=== PATIENT | female | born 1945 | race Caucasian/White ===

== ENCOUNTER 2024-09-24 17:30 | Inpatient (IN) | payer OTHER, SELFPAY ==
[2024-09-23] VITALS (7 sets, daily range): BP systolic 120–186; BP diastolic 55–101; BMI 34.8; BMI 33.8
--- NOTE | 2024-09-23 14:01 | CON.NEURO ---
Addendum entered and electronically signed by Rohit Jiménez MD 09/23/24 16:17:
Studies reviewed.
I have personally examined the patient. I reviewed and agree with the SENIOR IT SECURITY ANALYST's Note.
My addenda:
Awake, alert, interactive. No acute distress.
Speech intact.
Follows 2-step requests w/o difficulty. No tremor.
Extra-ocular movements grossly intact.
Facial movements full and symmetric. Hearing intact to normal conversational volume.
Normal UE movements bilaterally.
Neck: full ROM.
Chest: no dyspnea
Heart: no JVD
Ext: (-) Clubbing, (-) Cyanosis, (-) Edema
IMPRESSIONS/RECOMMENDATIONS:
Abrupt onset of left arm leg and V3 distribution sensation change with patient experiencing prior episodes of left arm sensation change during hypoglycemia
Differential diagnosis includes toxic metabolic encephalopathy, TIA and stroke, hypertensive encephalopathy, migraine with aura
Check blood work for potential metabolic causes
Check for aspirin efficacy (P2Y12 assay, verify now test)
Would add clopidogrel to the patient's usual aspirin dosing for 21 days due to risk of TIA, then return to aspirin if there is efficacy by blood work testing
Check lipid profile
Check MRI of brain to determine if there is a structural abnormality producing symptoms
Goal of normoglycemia
Would attempt to reduce patient's blood pressure by approximately 20% for the next 24 hours, then goal of normotension
D/W patient / family / nursing
All questions answered.
Will continue to follow patient.
Original Note:
Documented by User: Sherri Foreman NP 09/23/24 15:39
Neuro Assessment/Plan
Assessment
Patient is a 79 year old right-handed female with PMH of Factor V Leiden, Type 2 DM, HTN, gastric bypass, current smoker, presented to [facility] on 09/23/2024 for evaluation of left-sided numbness and tingling.
Head CT: No acute intracranial abnormality noted. No acute hemorrhage. Mild chronic white matter ischemic change. Aspects: 10.
Head and neck CTA:
The cervical carotid and vertebral arteries are patent. Mild calcified plaque involving the left carotid bulb and extending into the origin of the left ICA. However, no hemodynamically significant stenosis, occlusion, or dissection.
No [place] region aneurysm or stenosis.
No cerebral artery significant plaque, stenosis, thrombus, or occlusion. Normal variant hypoplastic segments of the right posterior cerebral artery P1 segment, left posterior cerebral artery P1 segment, distal basilar artery, and distal intradural
left vertebral artery.
Labs: LDL 128, Hgb A1C 7.1
Plan
Impression: abrupt onset of left sided numbness and tingling due to ischemic stroke vs hypertensive encephalopathy vs migraine with aura
-check MRI brain without contrast to evaluate for stroke
-BP goal is normotension.
-continue ASA 81mg daily, check aspirin assay to ensure she is a responder, start clopidogrel 75 mg daily for 21 days followed by monotherapy with aspirin unless not a responder then may continue with monotherapy with clopidogrel
-goal is normoglycemia.
-current LDL 128 with goal <70, start atorvastatin 80 mg nightly
-PT/OT/ST evaluations
-DVT prophylaxis
-continue neurochecks and NIHSS per unit guidelines
-smoking cessation advised
-stroke education material to be provided
All questions encouraged and answered, plan of care discussed with LUIS F Esposito, nurse, patient and
Consultation
Order
Date of Consultation: 09/23/24
Requesting Provider: Marvin Lara PA-C
Reason for Consult: stroke alert
Subjective/Objective
Subjective Data
Date of Service: September 23, 2024
Patient is a 79 year old right-handed female with PMH of Factor V Leiden, Type 2 DM, HTN, gastric bypass, current smoker, presented to [facility] on 09/23/2024 for evaluation of left-sided numbness and tingling. She noted left-sided paresthesias affecting
the arm and leg beginning at 12:00 today, progressing to the face shortly before arrival to the ER. Woke up around 6 am and thought she was in her normal state of health, at 7:30 am went to [facility] and noticed her left hip was numb but thought it was
due to her diabetes. Also had a headache and nausea a little later which resolved after NSAID. She states she had similar symptoms 20 years ago after taking Topamax. Currently denies vision changes, issues with speech or swallowing, denies dizziness
or headache or neck pain, denies chest pain or SOB, denies issues with bowel/bladder, denies issues with balance or ambulation. She is currently taking aspirin 81 mg daily for her Factor V Leiden. Head neck CTA with no acute findings. Head CT with
no acute findings. NIHSS 1 not a TNK candidate. In the ED her BP was 177/80. She states her symptoms are improving but have not resolved.
Objective Data
Vital Signs
Temp Pulse Resp BP Pulse Ox
98.8 F 103 20 186/100 98
09/23/24 13:54 09/23/24 13:54 09/23/24 13:54 09/23/24 13:54 09/23/24 13:54
Patient Allergies
topiramate (From Topamax) Allergy (Verified 09/23/24 13:56)
Nausea/numbness
CVA Assessment
Onset of Stroke Symptoms
Onset of symptoms known: Yes
Date of onset of symptoms: 09/23/24
Time of onset of symptoms: 12:00
Time pt last seen normal is known: Yes
Date last time pt seen normal: 09/23/24
Time last time pt seen normal: 12:00
NIH Stroke Score
Level of Consciousness: 0 - Alert
LOC Questions: 0-Answers both correctly
LOC Commands: 0-Performs both correctly
Best Horizontal Gaze: 0-Normal
Visual Rogers: 0=Normal, no visual loss
Facial Palsy: 0=Normal, symmetrical
Motor - Right Arm: 0=No drift 10 seconds
Motor - Left Arm: 0=No drift 10 seconds
Motor - Right Le-No drift 5 seconds
Motor - Left Le-No drift 5 seconds
Limb Ataxia: 0-Absent
Sensation: 1-Mild loss
Best Language: 0-No aphasia
Dysarthria: 0-Normal
Extinction and Inattention: 0-No abnormality
NIH Total Score:: 1
Tenecteplase Contraindications
Inclusion and Exclusion criteria reviewed: Yes
IAT Contraindications: NIHSS < 6
Modified Amandeep Score (MRS)
-
Modified Andrews Scale (mRS): No significant disability. Able to carry out usual activities.
Score: 1

Documented by User: Rohit Jiménez MD 09/23/24 15:54
CVA Assessment
NIH Stroke Score
NIH Total Score:: 1
Modified Andrews Score (MRS)
-
Score: 1
--- NOTE | 2024-09-23 14:06 | ED.CVA ---
History of Present Illness
General
Chief Complaint: CVA/TIA Symptoms
Time Seen by Provider: 09/23/24 14:05
Onset of Stroke Symptoms
Onset of symptoms known: Yes
Date of onset of symptoms: 09/23/24
Time of onset of symptoms: 12:00
History of Present Illness
History of Present Illness:
71-year-old female presents to the emergency department for evaluation of left-sided paresthesias affecting the arm and leg beginning at 12:00 today, progressing to the face shortly before arrival to the ER. Denies any vision changes, neck pain,
extremity weakness, or speech difficulty. No prior history of stroke. Stroke alert called by triage after initial assessment
Review of Systems
Review of Systems
Allergies reviewed?: Yes
All Other Systems: ROS reviewed and negative except as documented in HPI and ROS
Phy Exam
Physical Exam
Physical Exam:
GEN: Well appearing, NAD, WDWN
HEENT: Oral mucosa moist, no scleral icterus, no nasal congestion
Cardiac: Regular rate
Lung: No respiratory distress, no tachypnea
MSK: No gross deformity or injuries
Skin: Good color, no pallor or jaundice, no rashes
Neuro: AO x3; CN II-XII grossly intact. BUE strength 5/5 in all thomas, subjective hypoesthesia to the left upper extremity but sensation is globally intact. BLE strength 5/5 in all thomas, sensation intact and symmetric
Psych: Calm, cooperative
Scores
NIH Stroke Score
Level of Consciousness: 0 - Alert
LOC Questions: 0-Answers both correctly
LOC Commands: 0-Performs both correctly
Best Horizontal Gaze: 0-Normal
Visual Thomas: 0=Normal, no visual loss
Facial Palsy: 0=Normal, symmetrical
Motor - Right Arm: 0=No drift 10 seconds
Motor - Left Arm: 0=No drift 10 seconds
Motor - Right Le-No drift 5 seconds
Motor - Left Le-No drift 5 seconds
Limb Ataxia: 0-Absent
Sensation: 0-Normal
Best Language: 0-No aphasia
Dysarthria: 0-Normal
Extinction and Inattention: 0-No abnormality
NIH Total Score:: 0
Course
Orders/Labs/Results
Orders:
Orders
09/23/24 14:05
CT HEAD STROKE ALERT W/o Cont Urgent
Comment:
Reason For Exam: L sided paresthesia
CT HEAD/NECK ANG STROKE ALERT Urgent
Comment:
Reason For Exam: L sided paresthesia
09/23/24 14:06
Electrocardiogram (*1) Urgent
Reason for Study: TIA/Stroke
EKG- Treatment ONCE
09/23/24 14:17
Cardiovascular Evaluation Urgent
Comment: ADD ON
Complete Blood Count/No Diff Urgent
Comprehensive Metabolic Panel Urgent
Free T4 Urgent
Comment: ADD ON
Glycohemoglobin (HgbA1c) Urgent
TSH Urgent
Comment: ADD ON
Vitamin B12 Urgent
Comment: ADD ON
09/23/24 14:21
Add On- LAB Routine
Tests Added?: lipid panel, hgb A1C, TSH, free t4, B12
VerifyNow Aspirin Routine
Pt on daily regimen OR been given initial dose of aspirin?: Yes
09/23/24 14:22
MR Brain Without Contrast Routine
Comment:
Reason For Exam: left sided numbness and tingling
Recent pill cam endoscopy?: No
09/23/24 14:27
Lorazepam [Ativan] 1 mg PO ONCE PRN PRN
09/23/24 14:29
Clopidogrel Bisulfate [Plavix] 75 mg PO NOW STA
09/23/24 14:30
Ferritin Routine
Folate Routine
Comment: May add to blood in lab
TSH Reflex To Free T4 Routine
Comment: May add to blood in lab
Vitamin B12 Routine
Comment: May add to blood in lab or draw as routine
09/23/24 14:58
Admit/Transfer Patient As Directed
Co-Sign Provider:
Level of Care: Observation services
Assign to:: Telemetry
Physician / Group: warner lugo
Diagnosis: TIA
Reason for Telemetry: CVA/TIA
Date to Stop Telemetry: 09/26/24
Time to Stop Telemetry: 11:00
09/23/24 14:59
Code Status As Directed
Resuscitation Status: Full Code
PRN Pain Medication Management As Directed
May give lesser potent ordered pain med per pt: Yes
preference::
Protocol:: Medication orders for pain may be administered in a
manner that supports deferring to patient preference
when the pt is:
- Requesting an ordered lesser potent pain medication.
Least to most potent pain medications are defined
as: acetaminophen < NSAID < tramadol < opioids
(morphine, oxycodone, hydromorphone).
- Requesting a lesser dose of the same medication IF
ORDERED.
- Requesting a less intrusive route of administration
if both routes are prescribed by the provider (PO <
IV).
09/23/24 18:00
Atorvastatin [Lipitor] 80 mg PO QPM
09/24/24 08:00
Clopidogrel Bisulfate [Plavix] 75 mg PO DAILY
09/26/24 11:00
DC Protocol for Telemetry ONCE
Abnormal Lab Results
09/23/24 09/23/24
14:17 14:19
MCHC 32.4 L g/dL
(33.0-37.0)
Glucose 118 H mg/dl
(70-99)
Triglycerides 253 H mg/dl
(10-149)
Total Cholesterol 239 H mg/dl
(50-199)
VLDL Cholesterol, Calc 50 H mg/dl
(0-30)
POC Glucose 111 H mg/dl
(70-99)
09/23/24 14:17
09/23/24 14:17
Vital Signs
Initial and Last Documented VS:
Initial Vital Signs
Temp Pulse Resp BP Pulse Ox
98.8 F 103 20 186/100 98
09/23/24 13:54 09/23/24 13:54 09/23/24 13:54 09/23/24 13:54 09/23/24 13:54
Last Documented Vital Signs
Temp Pulse Resp BP Pulse Ox
98.8 F 94 20 137/80 97
09/23/24 13:54 09/23/24 15:00 09/23/24 13:54 09/23/24 15:00 09/23/24 15:00
MDM/Problems Addressed
MDM/Problems Addressed:
79-year-old female arrives as a stroke alert. CT and CTA showed no evidence for intracranial hemorrhage or large vessel occlusion. She is not a candidate for thrombolysis on the basis of a low NIH score with only subjective paresthesias and no
objective weakness. She will be admitted to the medical service for further stroke workup and started on dual antiplatelets as indicated by neurology
Comment
Comment:
EKG independently interpreted by me shows a normal sinus rhythm with a first-degree AV block, no ischemic changes, rate of 78
*Pulse Oximetry
SaO2: 98
Oxygen Mode of Delivery: Room air
Patient hypoxic: no
*Critical Care Note
Total Time (30-74mins, 75-104mins- exclusive of procedures): Not Applicable
Update Note
Update Note:
Outpatient lab work reviewed through patient's health portal showing an A1c of 7.1, total cholesterol 207, and LDL cholesterol of 123 most recently, HDL cholesterol was 49
ED Attending Note
-
Portions of this chart may have been created with voice recognition software.� Occasional wrong word or��sound alike� substitutions may have occurred due to the inherent limitations of voice recognition software.
Discharge Plan
Departure
Patient Disposition: Admit
Date of Disposition: 09/23/24
Time of Disposition: 14:43
Admit to: Telemetry
Presentation/result/management discussed w/ accepting MD/DO: Hospitalist
Discharge Problem:
Acute CVA (cerebrovascular accident)
Interventions
Interventions:
*Risk Screen - Suicide Last Done: 09/23/24 13:54
*General Assessment Last Done: 09/23/24 13:54
*ED- Fall Risk Assessment Last Done: 09/23/24 14:19
ED- Pulmonary Assessment Last Done: 09/23/24 14:20
ED- Neurological Assessment Last Done: 09/23/24 14:04
ED Swallowing Screen Last Done: 09/23/24 14:04
[2024-09-23 14:21] LABS: Glucose - Point of Care 111 mg/dl (70-99)
[2024-09-23 14:32] LABS: Hematocrit 46.6 % (37.0-47.0); Hemoglobin 15.1 g/dL (12.0-16.0); Mean Corp Hgb Conc. 32.4 g/dL (33.0-37.0); Mean Corpuscular Volume 86.8 fL (81.0-99.0); Platelet Count 232 10^3/uL (130-400); Red Cell Dist. Width 14.2 % (11.5-14.5)
[2024-09-23 14:41] LABS: ALT (SGPT) 16 U/L (0-35); AST (SGOT) 19 U/L (14-36); Albumin 4.4 g/dl (3.5-5.0); Alkaline Phosphatase 87 U/L (38-126); Blood Urea Nitrogen 10 mg/dl (7-17); Calcium 9.5 mg/dl (8.4-10.2); Carbon Dioxide 28 mmol/L (22-30); Chloride 104 mmol/L (98-107); Estimated Creatinine Clearance 94 ml/min; Glucose 118 mg/dl (70-99); Potassium 4.1 mmol/L (3.5-5.1); Sodium 140 mmol/L (135-145); Total Protein 7.6 g/dl (6.3-8.2); eGFR > 60.00
--- NOTE | 2024-09-23 14:46 | HPS.HSE ---
Family Physician
-
Family Physician:
Chief Complaint
-
left sided paresthesias
History of Present Illness
71-year-old female with PMh for HTN, type 2 Dm presents to the emergency department for evaluation of left-sided paresthesias affecting the arm and leg beginning at 12:00 today, progressing to the face shortly before arrival to the ER. the
paresthesias getting better. denied any acute weakness. Denies any vision changes, neck pain, extremity weakness, or speech difficulty. denied JEAN BAPTISTE< dizzy or syncope. denied chest pain, sob.denied abdominal pain,n,v,d. denied dysuria or hematuria.
Head neck CTA with no acute findings. Head CT with no acute findings. Patient initiated on Plavix. Admitted for further management
Medical History
Past Medical History
Past Medical History: Reports Other
Additional Past Medical History:
Type 2 diabetes
Hypertension
Factor V [place]
Asthma
Past Surgical History: Reports Other
Additional Past Surgical History:
Cholecystectomy
Gastric bypass
Social History
Tobacco: Smoker (1 pack/week)
Alcohol: None
Drug: None
Family History
Family History: Not pertinent
Allergies / Home Medications
Allergies reflects when Allergies were last updated in [employer].
Home Medications with original date entered in [employer]
Allergy/Medication List:
Allergies
Allergy/AdvReac Type Severity Reaction Status Date / Time
topiramate (From Topamax) Allergy Nausea/numb Verified 09/23/24 13:56
ness
Home Medications
aspirin 81 mg tablet 81 mg PO DAILY 09/23/24
cholecalciferol (vitamin D3) 25 mcg (1,000 unit) tablet (Vitamin D3) 25 mcg PO DAILY 09/23/24
dextran 70-hypromellose eye drops in a dropperette (Artificial Tears (PF) drops in a dropperette) 1 drp BOTH EYES QIDPRN PRN DRY EYE 09/23/24
docusate sodium 100 mg capsule 100 mg PO HS 09/23/24
ferrous sulfate 27 mg iron tablet 54 mg PO Q48H 09/23/24
magnesium oxide 400 mg PO QPM 09/23/24
metformin 500 mg tablet 500 mg PO MEALS 09/23/24
potassium 99 mg tablet 99 mg PO DAILY 09/23/24
triamterene 37.5 mg-hydrochlorothiazide 25 mg tablet 0.5 tab PO DAILY Fluid Retention/Swelling 09/23/24
Review of Systems
-
Constitutional: Reports No Symptoms
EENT: Reports No Symptoms
Respiratory: Reports No Symptoms
Cardiac: Reports No Symptoms
Abdomen/GI: Reports No Symptoms
: Reports No Symptoms
Musculoskeletal: Reports No Symptoms
Skin: Reports No Symptoms
Neurological: Reports Numbness ( left side) and Other
Endocrine: Reports No Symptoms
Hematologic/Lymphatic: Reports No Symptoms
Psych: Reports No Symptoms
Physical Exam
Vital Signs
Vital Signs
Temp Pulse Resp BP Pulse Ox
98.8 F 102 20 170/101 98
09/23/24 13:54 09/23/24 14:19 09/23/24 13:54 09/23/24 14:17 09/23/24 14:19
Physical Exam
General: Well Developed, Well Nourished and No Apparent Distress
HEENT: NormoCephalic, Moist mucous membranes and Atraumatic
Respiratory: Clear
Cardiac: S1/S2 and Regular Rhythm; No Murmur or Rub
GI: Soft, Non Tender, Non Distended and Normal Bowel Sounds; No Organomegaly
Rectal: Deferred by Provider
Musculoskeletal: No Clubbing, No Cyanosis and No Edema
Skin: No Rash
Neuro: AO x 3 and Nonfocal/grossly intact
Psych: Calm
Laboratory Results
-
09/23/24 14:17
09/23/24 14:17
Laboratory Results
Total Bilirubin 0.6 mg/dl (0.2-1.3) 09/23/24 14:17
AST 19 U/L (14-36) 09/23/24 14:17
ALT 16 U/L (0-35) 09/23/24 14:17
Alkaline Phosphatase 87 U/L (38-126) 09/23/24 14:17
Data Reviewed
-
CT Scan: Report Reviewed by me
Lab Data: Labs Reviewed by me
Impression/Plan
-
# Acute CVA
- Head neck CTA with impression of he cervical carotid and vertebral arteries are patent. Mild calcified plaque involving the left carotid bulb and extending into the origin of the left ICA. However, no hemodynamically significant stenosis,
occlusion, or dissection.
No [place] region aneurysm or stenosis.No cerebral artery significant plaque, stenosis, thrombus, or occlusion. Normal variant hypoplastic segments of the right posterior cerebral artery P1 segment, left posterior cerebral artery P1
segment, distal basilar artery, and distal intradural left vertebral artery.
- CT head with impression No acute intracranial abnormality noted. No acute hemorrhage. Mild chronic white matter ischemic change.
- Obtain MRI
- Plavix continued
- Aspirin continue
- Patient cannot tolerate statin, will try Crestor
- Obtain A1c, lipid profile
- Neurology following patient
# Iron deficiency anemia
- Ferrous sulfate continued
# Type 2 diabetes
- Hold metformin
- Sliding scale, CHO diet
# Essential hypertension
- Triamterene/HCTZ continue
#Nicotine dependence
-smokes 1 pack per week
-denied Nicotine patch
# DVT prophylaxis
- SCDs
# CODE STATUS
- Full code
[2024-09-23 14:48] LABS: HDL Cholesterol 61 mg/dl; LDL Cholesterol, Calculated 128 mg/dl; Very Low Density Lipoprotein 50 mg/dl (0-30)
--- NOTE | 2024-09-23 14:49 | W.PN.UPDATE ---
Update Note
Progress Note Update
This note serves as an addendum to the H&P by strategy consultant NICOLE�
Syeda TOÑO�
HPI
71F HX HTN, DMT2 seen at ER:
- for evaluation of left-sided paresthesias affecting the arm and leg beginning at 12:00 today, progressing to the face shortly before arrival to the ER.
- No prior history of stroke. Stroke alert called by triage after initial assessment
ROS
Denies any vision changes, neck pain, extremity weakness, or speech difficulty.
Relevant VS
Temp Pulse Resp BP Pulse Ox
98.8 F 102 20 170/101 98
09/23/24 13:54 09/23/24 14:19 09/23/24 13:54 09/23/24 14:17 09/23/24 14:19
PE:
GEN: NAD, WDWN
HEENT: Oral mucosa moist, no scleral icterus, no nasal congestion
Cardiac: RRR
Lung: CTA
MSK: No gross deformity or injuries
Neuro:
AO x3
CN II-XII grossly intact.
BUE strength 5/5 in all thomas,
subjective hypoesthesia to the left upper extremity but sensation is globally intact.
BLE strength 5/5 in all thomas, sensation intact and symmetric
Psych: Calm, cooperative
NIH
Level of Consciousness: 0 - Alert
LOC Questions: 0-Answers both correctly
LOC Commands: 0-Performs both correctly
Best Horizontal Gaze: 0-Normal
Visual Thomas: 0=Normal, no visual loss
Facial Palsy: 0=Normal, symmetrical
Motor - Right Arm: 0=No drift 10 seconds
Motor - Left Arm: 0=No drift 10 seconds
Motor - Right Le-No drift 5 seconds
Motor - Left Le-No drift 5 seconds
Limb Ataxia: 0-Absent
Sensation: 0-Normal
Best Language: 0-No aphasia
Dysarthria: 0-Normal
Extinction and Inattention: 0-No abnormality
NIH Total Score:: 0
Relevant data�
09/23/24 09/23/24
14:17 14:19
MCHC 32.4 L
Glucose 118 H
Triglycerides 253 H
Total Cholesterol 239 H
VLDL Cholesterol, Calc 50 H
POC Glucose [address] HEAD/NECK ANG STROKE ALERT
- The cervical carotid and vertebral arteries are patent.
- Mild calcified plaque involving the left carotid bulb and extending into the origin of the left ICA.
However, no hemodynamically significant stenosis, occlusion, or dissection.
- No [place] of [place] region aneurysm or stenosis.
- No cerebral artery significant plaque, stenosis, thrombus, or occlusion.
- Normal variant hypoplastic segments of the right posterior cerebral artery P1 segment, left posterior cerebral artery P1 segment, distal basilar artery, and distal intradural left vertebral artery.
HCT
- No acute intracranial abnormality noted. No acute hemorrhage. Mild chronic white matter ischemic change.
ASSESSMENT & PLAN
Stroke alert
Abrupt onset of L paresthesias affecting the arm and leg
R hand dominant
- NIH zero
- NEG HCT, NEG H & N CTA
- Not TNK candidate
- agree with Plavix added GRINDER GEAR ASA
- Brain MRI in AM
- agree with Crestor
- cessation of smoking
- Neuro consulted
Hyperlipemia
- Prior HX intolerance to 3 statin due to ADES depressed mood
- start Rosuvastatin 20 mg HS
Poorly controlled HTN
Essential HTN
- Observe BP
- c/w HCTZ/Triamterene
DMT2
- hold metformin
- add ISS Low
Current smoker
- cessation of smoking encouraged
- refuse Nicotine patch
DVT Px: SCD
Full code
OBS TLM
[2024-09-23] MEDS: PLAVIX 75 MG PO (15:03)
[2024-09-23 16:13] LABS: TSH 0.06 uIU/ml (0.47-4.68)
[2024-09-23 16:32] LABS: Vitamin B12 288 pg/ml (239-931)
--- NOTE | 2024-09-23 17:35 | CM ---
CM reviewed chart and met with pt bedside in ED. Pt lives alone, first floor condo with [address],
Independent in ADLs, personal care and ambulation at baseline, no DME
TOVAR reviewed and signed
No hx VN or SNF
PCP: Keyon Xiong
Pharmacy: [facility]
Anticipate discharge home, CM will continue to follow for any discharge planning needs.
[2024-09-23 18:18] LABS: Ferritin 24.2 ng/ml (11.1-264.0)
--- NOTE | 2024-09-23 18:26 | TRANSFER ---
pt arrived from ED accompanied by staff. pt ambulated from stretcher to bed independently. pt AAOx3, VSS. BP elevated at 158/91. pt c/o 3/10 headache, but does not want tylenol. NIHSS 1 upon admission for decreased sensation to left cheek, arm, and
leg. plan of care ongoing.
[2024-09-23 18:29] LABS: Glucose - Point of Care 129 mg/dl (70-99)
[2024-09-23 18:49] LABS: Folate > 20.0 ng/ml (2.76-20)
[2024-09-23] MEDS: CRESTOR 20 MG PO (19:42)
[2024-09-23] MEDS: COLACE 100 MG PO (19:43)
[2024-09-23 21:24] LABS: Glucose - Point of Care 144 mg/dl (70-99)
[2024-09-24] VITALS (7 sets, daily range): BP systolic 134–147; BP diastolic 65–81; PULSE 59–68; O2SAT 97–98
--- NOTE | 2024-09-24 03:02 | DOWNTIME ---
There was a [employer] Downtime on 09/24/2024 from 0100 to 09/24/2024 at 0235. Downtime documentation of patient's care, including medication administrations, has been reconciled in the electronic record per guidelines. Refer to the
patient's paper chart under the miscellaneous tab to see printed paper medication records and downtime forms.
[2024-09-24 06:41] LABS: Glycohemoglobin (HgbA1c) 7.1 % (4.0-5.6)
[2024-09-24] MEDS: PLAVIX 75 MG PO (07:55)
[2024-09-24] MEDS: LOW STRENGTH ASPIRIN 81 MG PO (07:55)
[2024-09-24 08:23] LABS: Glucose - Point of Care 149 mg/dl (70-99)
[2024-09-24 09:01] LABS: VerifyNow Aspirin 504 ARU
--- NOTE | 2024-09-24 09:16 | W.PN.HOSP.TC ---
Today's Communication/Plan
-
Oral folic acid
Aspirin & Plavix
Crestor
Benzo for MRI
f/w neurology recommendations
Assessment / Plan
Assessment / Plan
Physical Exam
General: Well Developed, Well Nourished and No Apparent Distress
HEENT: NormoCephalic, Moist mucous membranes and Atraumatic
Respiratory: Clear
Cardiac: S1/S2 . Positive murmur
GI: Soft, Non Tender, Non Distended and Normal Bowel Sounds;
Musculoskeletal: No Clubbing, No Cyanosis and No Edema
Skin: No Rash
Neuro: AO x 3 and Nonfocal/grossly intact. Mild left facial droop
Psych: Calm
#Abrupt onset of left arm & leg numbness
She reports same numbness on the left side with mild headache. No blurred vision. No speech difficulty. Noted to have mild left facial droop
- Head neck CTA with impression of he cervical carotid and vertebral arteries are patent. Mild calcified plaque involving the left carotid bulb and extending into the origin of the left ICA. However, no hemodynamically significant stenosis,
occlusion, or dissection.
No [place] region aneurysm or stenosis.No cerebral artery significant plaque, stenosis, thrombus, or occlusion. Normal variant hypoplastic segments of the right posterior cerebral artery P1 segment, left posterior cerebral artery P1
segment, distal basilar artery, and distal intradural left vertebral artery.
- CT head with impression No acute intracranial abnormality noted. No acute hemorrhage. Mild chronic white matter ischemic change.
Differential diagnosis includes toxic metabolic encephalopathy, TIA and stroke, hypertensive encephalopathy, migraine with aura
- Obtain MRI
- Plavix continued
- Aspirin continue
- Patient cannot tolerate statin, will try Crestor
- Obtain A1c 7.1,
Lipid panel showed triglyceride 253, total cholesterol 239, LDL 128, HDL 61. Normal vitamin B12. Low folate level.
- Appreciate neurology help
# Iron deficiency anemia
- Ferrous sulfate continued
# Type 2 diabetes
- Hold metformin
- Sliding scale, CHO diet
# Essential hypertension
- Triamterene/HCTZ continue
#Nicotine dependence
-smokes 1 pack per week
-denied Nicotine patch
# DVT prophylaxis
- SCDs
# CODE STATUS
- Full code
Total time spent to see the patient, examine the patient, review data and lab results, discuss treatment plan with patient, nursing staff around 55 minutes
Anticipated Discharge: 24 - 48 hours
Subjective/Interval History
-
Date of Service: September 24, 2024
No chest pain or sob
No new focal signs, reports headache and same numbness in left arm/leg
Objective Data
-
Vital Signs:
Vital Signs
Temp Pulse Resp BP Pulse Ox
97.8 F 79 18 135/81 95
09/24/24 07:49 09/24/24 07:49 09/24/24 07:49 09/24/24 07:49 09/24/24 07:49
--- NOTE | 2024-09-24 09:39 | PTOTSP ---
pt currently requires supervision to no assistance to complete simple ADLs, functional transfers, ambulation. pt reports decreased sensation in LUE, LE, though no motor coordination or deficits. no acute OT needs identified at this time, will sign
off.
--- NOTE | 2024-09-24 09:43 | W.PN.NEURO.1 ---
Addendum entered and electronically signed by Rohit Jiménez MD 09/24/24 14:57:
Studies reviewed.
I have personally examined the patient. I reviewed and agree with the OUTSIDE SALES EXECUTIVE's Note.
My addenda:
Awake, alert, interactive. No acute distress.
Speech intact.
Follows 2-step requests w/o difficulty. No tremor.
Extra-ocular movements grossly intact.
Facial movements full and symmetric. Hearing intact to normal conversational volume.
Normal UE movements bilaterally.
Neck: full ROM.
Chest: no dyspnea
Heart: no JVD
Ext: (-) Clubbing, (-) Cyanosis, (-) Edema
IMPRESSIONS/RECOMMENDATIONS:
Abrupt onset of left face and left arm sensation change
Most likely secondary to acute onset stroke, differential diagnosis includes migraine with aura and toxic metabolic encephalopathy
Await MRI of brain
Continue dual antiplatelet therapy for 21 days, then return to aspirin alone dependent on MRI of brain results.
Initiate B12 replacement
Initiate iron infusions due to low ferritin level (less than 75)
Compression stockings
Will continue to follow pending results.
Original Note:
Documented by User: Yessenia Hardin NP 09/24/24 14:40
Today's Communication / Plan
-
.
Neuro Assessment/Plan
Assessment
Abrupt onset of left arm leg and V3 distribution sensation change with patient experiencing prior episodes of left arm sensation change during hypoglycemia
Differential diagnosis includes toxic metabolic encephalopathy, TIA and stroke, hypertensive encephalopathy, migraine with aura
Vitamin B12 and ferritin levels are low.
Head CT: No acute intracranial abnormality noted. No acute hemorrhage. Mild chronic white matter ischemic change. Aspects: 10.
Head and neck CTA:
The cervical carotid and vertebral arteries are patent. Mild calcified plaque involving the left carotid bulb and extending into the origin of the left ICA. However, no hemodynamically significant stenosis, occlusion, or dissection.
No [place] region aneurysm or stenosis.
No cerebral artery significant plaque, stenosis, thrombus, or occlusion. Normal variant hypoplastic segments of the right posterior cerebral artery P1 segment, left posterior cerebral artery P1 segment, distal basilar artery, and distal intradural
left vertebral artery.
Labs: LDL 128, Hgb A1C 7.1
Plan
-MRI brain noncontrast pending.
-BP goal is normotension.
-continue ASA 81mg daily, Verify now aspirin testing demonstrates efficacy. Continue clopidogrel 75 mg daily for 21 days followed by monotherapy with aspirin.
-goal is normoglycemia.
-current LDL 128 with goal <70, continue rosuvastatin 20mg daily.
-Vitamin B12 level is low at 288, goal >400. Patient reports she takes a B vitamin at home orally, provide cyanocobalamin 1000mcg IM daily while hospitalized.
-Ferritin level is low at 24. Provide IV iron x1 now. Consider daily oral iron supplement as an outpatient instead of every other day.
-PT/OT/ST evaluations
-DVT prophylaxis
-THERON stockings due to lower extremity edema.
-continue neurochecks and NIHSS per unit guidelines
-smoking cessation counseling
-stroke education material to be provided
Subjective/Objective
Subjective Data
Date of Service: September 24, 2024
Patient reports that her left side is still numb involving the left face V2-V3 and left arm. She developed a dull headache yesterday around 1200, she still has this and rates it a 1/10. She denies any nausea, photo/phonophobia.
Objective Data
Vital Signs
Temp Pulse Resp BP Pulse Ox
97.8 F 79 18 135/81 95
09/24/24 07:49 09/24/24 07:49 09/24/24 07:49 09/24/24 07:49 09/24/24 07:49
Lab Results
09/23/24 14:17
09/23/24 14:17
Sodium 140 mmol/L (135-145) 09/23/24 14:17
Potassium 4.1 mmol/L (3.5-5.1) 09/23/24 14:17
BUN 10 mg/dl (7-17) 09/23/24 14:17
Glucose 118 mg/dl (70-99) H 09/23/24 14:17
Calcium 9.5 mg/dl (8.4-10.2) 09/23/24 14:17
LDL Cholesterol, Calc 128 mg/dl 09/23/24 14:17
Vitamin B12 Cancelled 09/23/24 14:30
Patient Allergies
topiramate (From Topamax) Allergy (Verified 09/23/24 13:56)
Nausea/numbness
LDL Level: >70, statin ordered
Review of Systems
-
History Source: Patient
EENT: Negative Blurry Vision, Decreased Vision or Swallowing Difficulty
Respiratory: Negative Cough or Trouble Breathing
Cardiac: Negative Chest Pain or Palpitations
Abdomen/GI: Negative Nausea
Neuro: Headache and Numbness; Negative Dizzy, Weakness, Ataxia, Tremors or Speech Problem
Physical Exam
-
General: Well Developed, Well Nourished and No Apparent Distress
Eyes: No Ptosis and PERRLA
HEENT: Normocephalic and Atraumatic
Neck: Full Range of Motion
Respiratory: No Dyspnea
GI: Non-distended
Extremities: No Clubbing, No Cyanosis and Edema +2 (RLE)
Psych: Unremarkable
Extended Neurological Exam
Mood & Affect: Mood Unremarkable and Affect Unremarkable
Attention Span & Concentration: Awake, Alert, Interactive and No Difficulty with 2 Step Request
Memory: Unremarkable and Able to Recall
Tremor: Hand Tremor Absent and Head Tremor Absent
Involuntary Movement: None
Speech: Quality Unremarkable, Quantity Unremarkable and Rate of Production Unremarkable
Cranial Nerve II: Left Eye: Pupillary Reactivity Unremarkable, Pupillary Size Unremarkable and Visual Rogers Intact
Cranial Nerve II: Right Eye: Pupillary Reactivity Unremarkable, Pupillary Size Unremarkable and Visual Rogers Intact
Cranial Nerves III, IV, : Extraocular Movement: Extraocular Movement Full in all Directions
Cranial Nerve V: Facial Sensation: Negative Intact to Light Touch
Cranial Nerve VII: Facial Symmetry: Normal Facial Symmetry
Cranial Nerve VIII: Hearing: Unremarkable Hearing to Normal Conversational Volume
Cranial Nerves IX, X: Palate Movement: Palate Elevation Symmetric
Cranial Nerve XI: Shoulder Shrug: Unremarkable
Cranial Nerve XII: Tongue Protusion: Midline
Muscle Strength, Overall: Full Throughout
Muscle Bulk & Tone: Bulk Unremarkable and Tone Unremarkable
Pronator Drift: No Drift in Upper Extremities and No Drift in Lower Extremities
Touch Sensation: Other (mildly reduced in left face/arm)
Coordination: [id number] Testing Unremarkable
Modified Amandeep Score (MRS)
-
Modified [place] Scale (mRS): No significant disability. Able to carry out usual activities.
Score: 1
Data Reviewed
-
CT-A: Report Reviewed and Image Reviewed
CT Head: Report Reviewed and Image Reviewed
MRI Head: Pending
Labs: Report Reviewed
Lipid Profile: Report Reviewed
HgbA1C: Report Reviewed
Reviewed with: Physician and Patient

Documented by User: Rohit Jiménez MD 09/24/24 14:51
Modified Amandeep Score (MRS)
-
Score: 1
[2024-09-24] MEDS: NOVOLOG FLEXPEN-LOW RESISTANCE SC ×2 (10:17→17:26)
--- NOTE | 2024-09-24 10:19 | PTOTSP ---
Dysphagia Evaluation
Oral and pharyngeal swallowing grossly within functional limits.
No signs of dysarthria or aphasia observed during clinical bedside swallowing evaluation. Will test higher level language/cog as needed pending MRI of Brain.
Recommend:
1. Regular, Thin
2. Meds as best tolerated
3. General aspiration precautions
4. Further cog eval pending MRI Brain
[2024-09-24] MEDS: CYANOCOBALAMIN 1000 MCG IM (11:16)
[2024-09-24] MEDS: COMPAZINE 10 MG PO (11:16)
[2024-09-24 12:06] LABS: Glucose - Point of Care 222 mg/dl (70-99)
[2024-09-24] MEDS: NOVOLOG FLEXPEN-LOW RESISTANCE 2 UNITS SC (13:08)
[2024-09-24] MEDS: VALIUM INJECTION 5 MG IV (14:09)
[2024-09-24] MEDS: FERRLECIT 110 MG IV (15:22)
[2024-09-24 17:00] LABS: Glucose - Point of Care 92 mg/dl (70-99)
[2024-09-24] MEDS: MAGNESIUM OXIDE 400 MG PO (17:28)
[2024-09-24] MEDS: CRESTOR 20 MG PO (17:31)
--- NOTE | 2024-09-24 20:01 | W.PN.UPDATE ---
Update Note
Progress Note Update
Patient on 0.5 tab dyazide 37.5mg /25 mg at home. a capsule form only available in the hospital and patient can't supply home meds. 12.5 mg of HCTZ ordered instead dyazide as recommended by the pharmacist.
[2024-09-24] MEDS: COLACE 100 MG PO (21:07)
[2024-09-24 21:09] LABS: Glucose - Point of Care 124 mg/dl (70-99)
[2024-09-25 00:01] VITALS: BP 142/75
[2024-09-25 03:35] VITALS: BP 144/62
[2024-09-25 07:46] VITALS: BP 127/71
[2024-09-25 08:00] LABS: Glucose - Point of Care 155 mg/dl (70-99)
[2024-09-25] MEDS: FEOSOL 162.5 MG PO (08:06)
[2024-09-25] MEDS: CYANOCOBALAMIN 1000 MCG IM (08:06)
[2024-09-25] MEDS: LOW STRENGTH ASPIRIN 81 MG PO (08:07)
[2024-09-25] MEDS: PLAVIX 75 MG PO (08:07)
[2024-09-25] MEDS: ORETIC 12.5 MG PO (08:07)
[2024-09-25] MEDS: NOVOLOG FLEXPEN-LOW RESISTANCE 1 UNITS SC (08:07)
--- NOTE | 2024-09-25 09:21 | PTOTSP ---
SEAMSTRESS FITTER Evaluation
MOCA Version 8.1 [place] score = 25/30 (26 or higher is normal). Points were lost for visuospatial/executive function tasks (trail drawing 0/1, cube drawing 0/1), attention subtest (serial subtraction 2/3 points, working memory vs math error), and
delayed recall (3/5 words, improved to 4/5 with multiple choice). Patient's score is borderline normal. Patient feels she is functioning at her baseline.
Language appears to be intact for auditory comprehension, verbal expression, and reading comprehension tasks completed.
Education completed re: cognitive linguistic changes s/p stroke and outpatient evaluation/services as needed.
--- NOTE | 2024-09-25 10:09 | W.PN.HOSP.TC ---
Today's Communication/Plan
-
discharge
Assessment / Plan
Assessment / Plan
Physical Exam
General: Well Developed, Well Nourished and No Apparent Distress
HEENT: NormoCephalic, Moist mucous membranes and Atraumatic
Respiratory: Clear
Cardiac: S1/S2 . Positive murmur
GI: Soft, Non Tender, Non Distended and Normal Bowel Sounds;
Musculoskeletal: No Clubbing, No Cyanosis and No Edema
Skin: No Rash
Neuro: AO x 3 and Nonfocal/grossly intact. Mild left facial droop
Psych: Calm
#Acute right thalamus stroke
she is not having worsening symptoms
c/w Aspirin and Plavix for 21 days then c/w Plavix
Crestor, counseled about potential side effects
Seen by speech/ PT/OT
Echo of heart
OP follow-up cardiology for snf heart monitor
- Obtain A1c 7.1,
Lipid panel showed triglyceride 253, total cholesterol 239, LDL 128, HDL 61. Normal vitamin B12. Low folate level.
- Appreciate neurology help
# Iron deficiency anemia
- Ferrous sulfate continued
# Type 2 diabetes
- Resumed metformin upon discharge.
# Essential hypertension
- Triamterene/HCTZ continue
#Nicotine dependence
-smokes 1 pack per week
-denied Nicotine patch
# DVT prophylaxis
- SCDs
# CODE STATUS
- Full code
Total discharge time spent to see the patient, examine the patient, review data and lab results, discuss discharge plan with patient, nursing staff around 65 minutes
Anticipated Discharge: Today
Subjective/Interval History
-
Date of Service: September 25, 2024
No chest pain
No sob
Objective Data
-
Vital Signs:
Vital Signs
Temp Pulse Resp BP Pulse Ox
97.6 F 83 18 127/71 93
09/25/24 07:46 09/25/24 07:46 09/25/24 07:46 09/25/24 07:46 09/25/24 10:02
I&O
09/24/24 09/25/24 09/26/24
06:59 06:59 06:59
Intake Total 800 / 800
Balance 800 / 800
--- NOTE | 2024-09-25 11:20 | W.PN.NEURO.1 ---
Today's Communication / Plan
-
-BP goal is normotension.
-continue ASA 81mg daily, Verify now aspirin testing demonstrates efficacy. Continue clopidogrel 75 mg daily for 21 days followed by monotherapy with aspirin.
-goal is normoglycemia.
-current LDL 128 with goal <70, continue newly initiated rosuvastatin 20mg daily.
-Vitamin B12 level is low at 288, goal >400. Patient reports she takes a B vitamin at home orally, provide cyanocobalamin 1000mcg IM daily while hospitalized, then 1000 mcg as outpatient.
Neuro Assessment/Plan
Assessment
Vitamin B12 and ferritin levels are low.
Head CT: No acute intracranial abnormality noted. No acute hemorrhage. Mild chronic white matter ischemic change. Aspects: 10.
Head and neck CTA:
The cervical carotid and vertebral arteries are patent. Mild calcified plaque involving the left carotid bulb and extending into the origin of the left ICA. However, no hemodynamically significant stenosis, occlusion, or dissection.
No [place] region aneurysm or stenosis.
No cerebral artery significant plaque, stenosis, thrombus, or occlusion. Normal variant hypoplastic segments of the right posterior cerebral artery P1 segment, left posterior cerebral artery P1 segment, distal basilar artery, and distal intradural
left vertebral artery.
Labs: LDL 128, Hgb A1C 7.1
MRI demonstrates small right thalamic acute ischemic stroke
Abrupt onset of left arm leg and V3 distribution sensation change with patient experiencing prior episodes of left arm sensation change during hypoglycemia
Plan
-BP goal is normotension.
-continue ASA 81mg daily, Verify now aspirin testing demonstrates efficacy. Continue clopidogrel 75 mg daily for 21 days followed by monotherapy with aspirin.
-goal is normoglycemia.
-current LDL 128 with goal <70, continue newly initiated rosuvastatin 20mg daily.
-Vitamin B12 level is low at 288, goal >400. Patient reports she takes a B vitamin at home orally, provide cyanocobalamin 1000mcg IM daily while hospitalized, then 1000 mcg as outpatient.
-Ferritin level is low at 24. Provided IV iron x1. Consider daily oral iron supplement as an outpatient instead of every other day.
-PT/OT/ST evaluations
-DVT prophylaxis
-THERON stockings due to lower extremity edema.
-smoking cessation counseling
Will follow as needed.
Subjective/Objective
Subjective Data
Date of Service: September 25, 2024
Objective Data
Vital Signs
Temp Pulse Resp BP Pulse Ox
36.4 C 83 18 127/71 93
09/25/24 07:46 09/25/24 07:46 09/25/24 07:46 09/25/24 07:46 09/25/24 10:02
Lab Results
09/23/24 14:17
09/23/24 14:17
Sodium 140 mmol/L (135-145) 09/23/24 14:17
Potassium 4.1 mmol/L (3.5-5.1) 09/23/24 14:17
BUN 10 mg/dl (7-17) 09/23/24 14:17
Glucose 118 mg/dl (70-99) H 09/23/24 14:17
Calcium 9.5 mg/dl (8.4-10.2) 09/23/24 14:17
LDL Cholesterol, Calc 128 mg/dl 09/23/24 14:17
Vitamin B12 Cancelled 09/23/24 14:30
Patient Allergies
topiramate (From Topamax) Allergy (Verified 09/23/24 13:56)
Nausea/numbness
[2024-09-25 11:34] VITALS: BP 144/71
[2024-09-25 12:38] LABS: Glucose - Point of Care 122 mg/dl (70-99)
[2024-09-25] MEDS: NOVOLOG FLEXPEN-LOW RESISTANCE SC (12:38)
--- NOTE | 2024-09-25 15:44 | W.DCSUMMARY ---
Discharge Summary
Discharge Data
Date of Admission: 09/23/24
Date of Discharge: 09/25/24
-
Pending Results: No
Hospital Course
79 years old female presented with left-sided paresthesia affecting the arm, leg and left side of the face. She did not have history of stroke. NIH was 0 on admission. She was evaluated by neurologist. She was started on dual antiplatelet
therapy with aspirin and Plavix. Initial brain imaging studies including head and neck angiogram did not show acute findings. MRI of the brain showed a small right thalamic acute ischemic stroke. Neurologist recommended dual antiplatelet therapy
with aspirin and Plavix for 21 days and to continue with the Plavix. Patient was taking aspirin before the stroke. She was noted to have history of iron deficiency anemia, she was given intravenous iron. She was also given vitamin B12 supplement
to keep vitamin B12 level more than 400 as a goal. Patient was noted to have elevated lipid panel with LDL around 128. Patient reported intolerance to statins in the past but was willing to try Crestor. She was counseled regarding potential side
effects and she verbalized understanding. Echocardiogram showed normal left ventricular size and function with ejection fraction around 55 to 60% and no significant valvular heart disease. Patient was advised to follow-up with cardiology in the
office for long-term heart monitor. Patient remained hemodynamically stable. She was evaluated by PT/OT/speech with no skilled needs. Patient was discharged home in a stable condition.
Discharge Plan
-
Patient Disposition: Home (Routine Discharge)
Discharge Diagnosis/Procedures: -Acute right thalamus stroke: You had imaging studies. You were seen by neurologist. You were started on aspirin and Plavix, recommend 21 dual antiplatelet therapy then continue with the Plavix only. Recommend
outpatient follow-up with [employer] for long-term heart monitor.
-Hyperlipidemia. Elevated LDL, triglyceride and total cholesterol. You are started on Crestor. Potential side effects of statin include myopathy/myositis/elevated liver enzyme. Follow-up with your primary care doctor to monitor your blood work
-Tobacco use, avoid smoking.
- Diabetes. HGB A1C at 7.
Diet: Diabetic, Carb Controlled
Driving Restrictions: Not until seen by your Dr
Referrals:
Vicente Bai MD [Active, Cardiology]
Referral Note: call to make an appointment
Keyon Xiong MD [Family Provider, Family Practice] - in one to two weeks
Rohit Jiménez MD [Active, Neurology] - in one month
Dave Pickett MD [Active, Cardiology]
Referral Note: Call to make an appointment
Prescriptions:
New
clopidogrel 75 mg Tablet
75 mg PO DAILY Qty: 30 0RF
rosuvastatin 20 mg Tablet
20 mg PO QPM Qty: 30 0RF
folic acid 1 mg tablet
1 mg PO DAILY Qty: 30 0RF
mecobalamin (vitamin B12) 1,000 mcg tablet,chewable
1,000 mcg PO DAILY Qty: 30 0RF
Continued
metformin 500 mg Tablet
500 mg PO MEALS
potassium 99 mg Tablet
99 mg PO DAILY
docusate sodium 100 mg Capsule
100 mg PO HS
triamterene-hydrochlorothiazid 37.5-25 mg Tablet
0.5 tab PO DAILY
aspirin 81 mg Tablet
81 mg PO DAILY
Artificial Tears (PF) Dropperette
1 drp BOTH EYES QIDPRN PRN (Reason: DRY EYE)
cholecalciferol (vitamin D3) [Vitamin D3] 25 mcg (1,000 unit) Tablet
25 mcg PO DAILY
ferrous sulfate 27 mg iron Tablet
54 mg PO Q48H
magnesium oxide 400 mg magnesium Tablet
400 mg PO QPM
Discharge Orders:
Discharge Patient (As Directed); Ordered 09/25/24
Ordered By: León Medina
Discharge Date and Time
Discharge Date/Time: 09/25/24 13:37
Print Language: IRISH
== END 2024-09-25 13:37 | disposition home or self-care (01) | DRG 65 ==
LOC: 4 EAST ACU 17:30
PROVIDERS: Nurse Practitioner; Physician Assistant; ADMITTING PHYSICIAN Internal Medicine; ATTENDING PHYSICIAN Internal Medicine; CONSULT PHYSICIAN Psychiatry & Neurology Neurology; EMERGENCY PHYSICIAN Student in an Organized Health Care Education/Training Program; FAMILY PHYSICIAN Family Medicine
DX: I63.89 Other cerebral infarction (principal); D68.51 Activated protein C resistance; E78.5 Hyperlipidemia, unspecified; I10 Essential (primary) hypertension; I44.0 Atrioventricular block, first degree; I65.22 Occlusion and stenosis of left carotid artery; D50.9 Iron deficiency anemia, unspecified; E11.9 Type 2 diabetes mellitus without complications; F17.210 Nicotine dependence, cigarettes, uncomplicated; I70.0 Atherosclerosis of aorta; J45.909 Unspecified asthma, uncomplicated; R20.2 Paresthesia of skin; R29.701 NIHSS score 1; Z79.84 Long term (current) use of oral hypoglycemic drugs; Z79.82 Long term (current) use of aspirin; Z98.84 Bariatric surgery status; Z88.8 Allergy status to other drugs, medicaments and biological substances; Z79.02 Long term (current) use of antithrombotics/antiplatelets
CPT/HCPCS: 70450; 70496; 70498; 70551; 80053; 80061; 82607; 82728; 82746; 82962; 83036; 84439; 84443; 85027; 85576; 92523; 92610; 93005; 93306; 97163; 97167; 99285; J2916; Q9967

== ENCOUNTER 2024-11-11 13:42 | Emergency (ER) | payer OTHER, SELFPAY ==
[2024-11-11] VITALS (11 sets, daily range): BP systolic 146–195; BP diastolic 75–180
--- NOTE | 2024-11-11 13:59 | CON.NEURO4 ---
Addendum entered and electronically signed by Rohit Jiménez MD 11/11/24 15:07:
Studies reviewed.
I have personally examined the patient. I reviewed and agree with the THERAPEUTIC CASE MANAGER's Note.
My addenda:
Awake, alert, interactive. No acute distress.
Speech intact.
Follows 2-step requests w/o difficulty. No tremor.
Extra-ocular movements grossly intact.
Facial movements full and symmetric. Hearing intact to normal conversational volume.
Normal UE movements bilaterally.
Neck: full ROM.
Chest: no dyspnea
Heart: no JVD
Ext: (-) Clubbing, (-) Cyanosis, (-) Edema
IMPRESSIONS/RECOMMENDATIONS:
Abrupt onset of worsening of prior stroke associated left hemibody numbness. Patient has had marked improvement since arrival with awareness of left abdominal and leg discomfort only now obvious with cutaneous stimulation only as her blood pressure
has dropped from being severely elevated.
Would continue the patient on aspirin
Would add clopidogrel 75 mg daily for the next 21 days although the event is most likely hypertensive encephalopathy
Discontinue clopidogrel after 21 doses
Patient was advised to have daily blood pressure checks and record same for her next primary care provider evaluation to determine if an antihypertensive is beneficial
Follow ferritin levels, if level less than 75, we will provide IV iron
Patient should maintain usual cyanocobalamin replacement
Continue rosuvastatin
D/W patient / family / nursing
All questions answered.
Will continue to follow as outpatient.
Original Note:
Documented by User: Yessenia Hardin NP 11/11/24 14:48
Consultation - Neurology 4
-
CONSULTING PHYSICIAN: Rohit Jiménez MD
REFERRING PHYSICIAN: ER/Dr. Kraft
DICTATED BY: IWONA Kaufman
DATE/TIME OF REQUEST: 11/11/24
DATE/TIME OF CONSULTATION: 11/11/24
Reason for Consultation: Stroke Alert
History of Present Illness:
This is a 79-year-old right-handed female who has presented to the hospital with report of recurrent left face, arm, and leg numbness. Patient was recently hospitalized at [facility] with similar symptoms from 09/23/24-09/25/24.
From previous evaluation by Neurology IWONA Babcock on 09/23/24:
'Patient is a 79 year old right-handed female with PMH of Factor V Leiden, Type 2 DM, HTN, gastric bypass, current smoker, presented to [facility] on 09/23/2024 for evaluation of left-sided numbness and tingling. She noted left-sided paresthesias
affecting the arm and leg beginning at 12:00 today, progressing to the face shortly before arrival to the ER. Woke up around 6 am and thought she was in her normal state of health, at 7:30 am went to [facility] and noticed her left hip was numb but
thought it was due to her diabetes. Also had a headache and nausea a little later which resolved after NSAID. She states she had similar symptoms 20 years ago after taking Topamax. Currently denies vision changes, issues with speech or swallowing,
denies dizziness or headache or neck pain, denies chest pain or SOB, denies issues with bowel/bladder, denies issues with balance or ambulation. She is currently taking aspirin 81 mg daily for her Factor V Leiden. Head neck CTA with no acute
findings. Head CT with no acute findings. NIHSS 1 not a TNK candidate. In the ED her BP was 177/80. She states her symptoms are improving but have not resolved.'
MRI brain 09/24/24 demonstrated an acute right thalamic ischemic stroke. Patient completed 21 days of DAPT with aspirin and clopidogrel. Aspirin efficacy testing demonstrated +efficacy and she was continued on aspirin monotherapy. She reports that
her symptoms almost completely resolved following her stroke with the exception of a tingling sensation in her left face/neck.
This morning (11/11/24) around 1130, she reports that her left face, arm, and leg numbness returned again. She also notes that she started feeling nauseous around the same time. Her symptoms felt identical to when she had her stroke, prompting her
to call 911. Blood pressure on arrival was 181/105. CT head was obtained and is negative for any acute abnormalities. Upon returning from CT scan, patient reports that her symptoms significantly improved and no she only notices numbness in her left
abdomen and left face to touch. NIHSS is 1 for mild sensation change. She is not a candidate for TNK/IAT due to low NIHSS and hx of stroke in the past 3 months. She reports that she has not been checking her blood pressure at home but at her
doctor's appointments it has been normal. She had follow-up with cardiology as an outpatient, she has not started any antihypertensive medications yet. She reports that she has been taking aspirin, cyanocobalamin, and ferrous sulfate. She quit
smoking in September.
Past Medical History: HTN, HLD, NIDDM, Factor V Leiden, asthma.
Surgical History: Cholecystectomy, gastric bypass, appendectomy, ectopic , R shoulder repair.
Family History: Reviewed and noncontributory.
Social History: Former smoker, quit 09/2024. Denies alcohol and illicit drug use.
Allergies: Topiramate.
Home Medications: See below.
Review of Symptoms:
Patient denies any fever, headache, chest pain, shortness of breath, or symptoms.
�Per the HPI.�All systems are reviewed negative except above.
Physical Exam:
The patient is afebrile, abdomen is nondistended, breathing is unlabored, skin is warm and dry, +2 BLE edema.
NIH Stroke Scale:
I performed the NIH stroke scale on the patient on 11/11/24 at 1400. The patient scored 1 points on the NIH stroke scale assessment, which were assigned as follows: See below.
Neurologic Examination:
The patient is awake, alert and oriented x 3. She is able to follow commands and answer questions appropriately. There is no aphasia or dysarthria. On cranial nerve assessment, pupils are 3 mm bilateral, round and reactive to light and
accommodation. Visual rogers are full. Extraocular movements are intact. Facial sensations are intact and bilaterally symmetrical, there is no facial asymmetry. Hearing is intact bilaterally to normal conversation volume. Tongue palate and uvula are
midline. Sternocleidomastoid strengths are full bilaterally. Motor strengths are 5/5 bilateral upper and lower extremities on medical research [place] scale. There is no drift or involuntary movement noted. Deep tendon reflexes are 2+ bilateral
upper and lower extremities and Babinski is absent bilaterally. Sensation of temperature is absent and vibration is mildly reduced in distal bilateral lower extremities. Temperature is reduced in the left thigh and face. There was no extinction
noted on double simultaneous stimulation. Coordination is intact by finger to nose bilaterally.
Lab Results: See below.
Neuro Imaging:
1. CT Head 11/11/24: There are mild changes of cortical atrophy and chronic ischemic disease with no acute changes from prior study. ASPECT score: 10.
2. CTA head/neck 10/24/24: The cervical carotid and vertebral arteries are patent. Mild calcified plaque involving the left carotid bulb and extending into the origin of the left ICA. However, no hemodynamically significant stenosis, occlusion, or
dissection. No upper [place] region aneurysm or stenosis. No cerebral artery significant plaque, stenosis, thrombus, or occlusion. Normal variant hypoplastic segments of the right posterior cerebral artery P1 segment, left posterior cerebral
artery P1 segment, distal basilar artery, and distal intradural left vertebral artery.
3. MRI Brain 09/24/24: Small 4 mm infarct in the right thalamus. Mild chronic microvascular white matter ischemic disease. Moderate atrophy.
Differentials for the patient's presentation include:
1. Left-sided paresthesias; etiology is likely recrudescence of right thalamic stroke symptoms in the setting of hypertensive urgency.
2. New, acute stroke producing the same symptoms as her previous stroke is unlikely.
Patient has the following risk factors for their symptoms: Recent R thalamic stroke, HTN
IV Tenecteplase/IAT candidacy: She is not a candidate for TNK/IAT due to low NIHSS and hx of stroke in the past 3 months.
Recommendations:
-Restart DAPT with aspirin 81mg and clopidogrel 75mg daily for 21 days. After 21 days, discontinue clopidogrel and continue aspirin monotherapy.
-Goal normotension, consideration for initiating an antihypertensive medication at this time.
-No role for further neurological imaging unless symptoms worsen/persist.
-LDL goal <70. Continue rosuvastatin 20mg daily.
-Goal normoglycemia.
-Continue cyanocobalamin and ferrous sulfate replacements.
-NIHSS and neurological checks per unit guidelines.
-Provide patient with a stroke education packet.
Discussed patient care with: Dr. Jiménez, the patient, patient's daughter
Vital Signs and Labs
-
Vital Signs and Labs:
Vital Signs
Temp Pulse Resp BP Pulse Ox
98.0 F 102 20 163/95 96
11/11/24 13:45 11/11/24 13:45 11/11/24 13:45 11/11/24 13:45 11/11/24 14:06
Medications
-
Home Medications
�Medication �Instructions �Recorded
aspirin 81 mg tablet 81 mg PO DAILY 09/23/24
cholecalciferol (vitamin D3) 25 25 mcg PO DAILY 09/23/24
mcg (1,000 unit) tablet (Vitamin
D3)
dextran 70-hypromellose eye drops 1 drp BOTH EYES QIDPRN PRN DRY EYE 09/23/24
in a dropperette (Artificial Tears
(PF) drops in a dropperette)
docusate sodium 100 mg capsule 100 mg PO HS 09/23/24
ferrous sulfate 27 mg iron tablet 54 mg PO Q48H 09/23/24
magnesium oxide 400 mg PO QPM 09/23/24
metformin 500 mg tablet 500 mg PO MEALS 09/23/24
potassium 99 mg tablet 99 mg PO DAILY 09/23/24
triamterene 37.5 0.5 tab PO DAILY Fluid 09/23/24
mg-hydrochlorothiazide 25 mg tablet Retention/Swelling
clopidogrel 75 mg tablet 75 mg PO DAILY #30 tabs 09/25/24
folic acid 1 mg tablet 1 mg PO DAILY #30 tabs 09/25/24
mecobalamin (vitamin B12) 1,000 1,000 mcg PO DAILY #30 tabs 09/25/24
mcg chewable tablet
rosuvastatin 20 mg tablet 20 mg PO QPM #30 tabs 09/25/24
NIH Stroke Score
Subsequent NIH Scale
Date of Subsequent NIH Scale: 11/11/24
Time of Subsequent NIH Scale: 14:00
NIH Stroke Score
Level of Consciousness: 0 - Alert
LOC Questions: 0-Answers both correctly
LOC Commands: 0-Performs both correctly
Best Horizontal Gaze: 0-Normal
Visual Rogers: 0=Normal, no visual loss
Facial Palsy: 0=Normal, symmetrical
Motor - Right Arm: 0=No drift 10 seconds
Motor - Left Arm: 0=No drift 10 seconds
Motor - Right Le-No drift 5 seconds
Motor - Left Le-No drift 5 seconds
Limb Ataxia: 0-Absent
Sensation: 1-Mild loss
Best Language: 0-No aphasia
Dysarthria: 0-Normal
Extinction and Inattention: 0-No abnormality
NIH Total Score:: 1
Modified [place] (mRS) Score
Modified [place] Scale (mRS): No significant disability. Able to carry out usual activities.
Score: 1
Alteplase Contraindication
Inclusion and Exclusion criteria reviewed: Yes
Reasons for NON-Tx with Thrombolytics POSSIBLE Exclusions: Recent ischemic stroke within 3 months
IAT Contraindications: NIHSS < 6

Documented by User: Rohit Jiménez MD 11/11/24 14:58
NIH Stroke Score
NIH Stroke Score
NIH Total Score:: 1
Modified [place] (mRS) Score
Score: 1
--- NOTE | 2024-11-11 14:04 | ED.CVA ---
History of Present Illness
General
Chief Complaint: CVA/TIA Symptoms
Source: patient, family and ambulance crew
Exam Limitations: none
Time Seen by Provider: 11/11/24 14:03
Nursing documentation reviewed up to this point in time: agreed with
Onset of Stroke Symptoms
Onset of symptoms known: Yes
Date of onset of symptoms: 11/11/24
Time of onset of symptoms: 11:30
Time pt last seen normal is known: No
History of Present Illness
History of Present Illness:
Note:
CHIEF COMPLAINT(S)
Numbness on the left side, including the face, arm, and leg.
HISTORY OF PRESENT ILLNESS
The patient is a 79-year-old female experiencing increased numbness, primarily on the left side of the face, arm, and leg. This exacerbation began around 11:30 AM today. She has residual numbness from a previous stroke, but todays symptoms are
notably worse. The patient denies experiencing nausea, vomiting, or headache. There is no report of confusion, but she expressed difficulty when asked to lift her left arm and leg during the physical examination.
CHRONIC MEDICAL CONDITIONS SIGNIFICANTLY AFFECTING CARE
The patient has a history of stroke with residual numbness.
MEDICATIONS
The patient reports taking aspirin.
REVIEW OF SYSTEMS
- Neurological: Increased numbness on the left side of the face, arm, and leg.
- Head: Denies headaches.
PHYSICAL EXAM
General: Alert, no acute distress.
Skin: Warm, dry.
Head: Normocephalic, atraumatic.
Neck: Supple, trachea midline.
Eye Ears, nose, mouth and throat: Oral mucosa moist. Patient followed commands appropriately, naming the year and month accurately.
Cardiovascular: Normal peripheral perfusion, No edema.
Respiratory: Respirations are non-labored.
Gastrointestinal: Abdomen nondistended.
Back: Normal range of motion, Normal alignment.
Musculoskeletal: normal strength bilaterally
Neurological: Alert and oriented to person, place, time, and situation. Left-sided numbness noted, with normal sensation on the right side. Cooperative, appropriate mood & affect.
PLAN
Neurology consultation with Dr. Jiménez is recommended, as the patient reports having a neurologist. The current episode of increased numbness will be further evaluated, with imaging studies such as a CT brain likely to be ordered.
DIFFERENTIAL DIAGNOSIS
The Differential Diagnosis includes, in no particular order and is not limited to:
1. Stroke recurrence
2. Transient ischemic attack
3. Peripheral neuropathy
4. Seizure or postictal state
5. Multiple sclerosis exacerbation
6. Migraine with aura
7. Conversion disorder
8. Central nervous system lesion
9. Side effects from medication
10. Hemiplegic migraine
NIHSS:
Result Summary
1 points undefined
Inputs:
1A: Level of consciousness -> 0 = Alert; keenly responsive
1B: Ask month and age -> 0 = Both questions right
'Blink eyes' & 'squeeze hands' -> 0 = Performs both tasks
2: Horizontal extraocular movements -> 0 = Normal
3: Visual thomas -> 0 = No visual loss
4: Facial palsy -> 0 = Normal symmetry
5A: Left arm motor drift -> 0 = No drift for 10 seconds
5B: Right arm motor drift -> 0 = No drift for 10 seconds
6A: Left leg motor drift -> 0 = No drift for 5 seconds
6B: Right leg motor drift -> 0 = No drift for 5 seconds
7: Limb ataxia -> 0 = No ataxia
8: Sensation -> 1 = Mild sensory loss
9: Language/aphasia -> 0 = Normal
10: Dysarthria -> 0 = Normal
11: Extinction/inattention -> 0 = Normal
Note:
CARE-UPDATE
11/11/24 - 20:19
Symptoms have resolved, and blood pressure has improved. The patient was assessed by Dr. Jiménez, a neurologist, who suggests the patient can be discharged home. Dr. Jiménez suspects a symptomatic hypertensive crisis.
EKG
My independent EKG interpretation is:
- Time of EKG: Not specified
- Rhythm: Normal sinus rhythm
- Heart Rate: 98 bpm
- NC Interval: Normal
- QRS Duration: Normal
- QT Interval: Normal
- [place]: Normal axis
- Abnormalities Observed: Ischemia noted
Disposition:
SUMMARY OF ENCOUNTER
The patient, a 79-year-old female with a history of stroke and residual numbness, presented to the emergency department with increased numbness on the left side of her face, arm, and leg. There was no nausea, vomiting, headache, or confusion
reported. Emergent evaluation was conducted to assess for potential stroke recurrence, and an EKG was performed, revealing ischemia. Following neurological assessment by Dr. Jiménez, it was determined that the symptoms were related to a symptomatic
hypertensive crisis.
DISPOSITION
Discharge.
ASSESSMENT
The patient likely experienced a transient ischemic attack (TIA) alongside a hypertensive crisis, which were managed successfully in the department.
MANAGEMENT OF THE PATIENTS CARE WAS DISCUSSED WITH
Consultation was conducted with Dr. Jiménez, a neurologist, who evaluated the patient and recommended discharge.
REASSESSMENT
Symptoms resolved, and blood pressure improved after management. The patient was reassessed for stability before discharge.
PLAN
The patients management plan includes discharge home with instructions to follow up with a primary care provider.
INDEPENDENT REVIEW OF LABS AND INTERPRETATION OF TESTS
My independent EKG interpretation is normal sinus rhythm with ischemia noted.
PATIENT EDUCATION AND COUNSELING
The patient was educated about the importance of monitoring blood pressure and was advised about the signs and symptoms of a stroke. It was emphasized to seek immediate medical attention if symptoms recur.
FOLLOW-UP INSTRUCTIONS
The patient was advised to follow up with her primary care physician.
MEDICAL DECISION MAKING
Complexity of Data Reviewed: Chronic conditions affecting care include the history of stroke with residual numbness. Differential diagnosis: stroke recurrence, transient ischemic attack, symptomatic hypertensive crisis.
Data:
Category 1
My independent interpretation of the EKG indicated ischemia.
Category 3
Discussion of management occurred with Dr. Jiménez, neurologist regarding patient assessment and discharge decision.
Risk:
Consideration of Admission/Observation: Escalation of care including admission/observation was considered given the complexity and risk of the patients presenting complaint, exam findings, and/or their underlying comorbidities. However, ultimately
it was concluded that the patient is safe for outpatient management with close follow up. Reasoning: Work-up reassuring, does not reveal any acute life/organ threatening processes, patients symptoms well controlled upon reevaluation, reexamination
is reassuring, vitals are stable, patient agreeable with discharge, reliable for follow-up.
DIAGNOSIS
- Transient Ischemic Attack (TIA) - ICD-10: G45.9
- Hypertensive crisis - ICD-10: I16.9
Phy Exam
Physical Exam
Physical Exam:
.
Course
Orders/Labs/Results
Orders:
Orders
11/11/24 13:57
Electrocardiogram (*1) Urgent
Reason for Study: Chest Pain
Cardiac Monitoring- Treatment ONCE
EKG- Treatment ONCE
IV Insert/Care/Rem.- Treatment PRN
O2 Therapy [RESP] Urgent
Titrate/Wean O2 to maintain O2 sat greater than (%): 90
Special Instructions: Maintain sats >/=90%
Pulse Ox/spot Check [RESP] Urgent
Quantity: 1
Special Instructions: ON ROOM AIR
11/11/24 14:03
CT HEAD STROKE ALERT W/o Cont Urgent
Comment:
Reason For Exam: left side numbness
11/11/24 14:04
Complete Blood Count/With Diff Urgent
Comprehensive Metabolic Panel Urgent
11/11/24 14:15
Ferritin Routine
Folate Routine
Comment: May add to blood in lab
Vitamin B12 Routine
Comment: May add to blood in lab or draw as routine
Abnormal Lab Results
11/11/24 11/11/24
14:04 14:15
WBC 11.3 H 10^3/uL
(4.8-10.8)
MCHC 32.5 L g/dL
(33.0-37.0)
MPV 11.1 H fL
(7.4-10.4)
Absolute Neuts (auto) 7.6 H 10^3/uL
(1.4-6.5)
Absolute Monos (auto) 1.1 H 10^3/uL
(0.1-0.6)
Lymphocytes % 20.3 L %
(20.5-51.1)
Monocytes % 9.9 H %
(1.7-9.3)
Folate > 20.0 H ng/ml
(2.76-20)
11/11/24 14:04
11/11/24 14:04
Vital Signs
Initial and Last Documented VS:
Initial Vital Signs
Temp Pulse Resp BP Pulse Ox
98.0 F 102 20 163/95 96
11/11/24 13:45 11/11/24 13:45 11/11/24 13:45 11/11/24 13:45 11/11/24 13:45
Last Documented Vital Signs
Temp Pulse Resp BP Pulse Ox
98.0 F 73 17 149/79 97
11/11/24 13:45 11/11/24 16:15 11/11/24 16:15 11/11/24 15:45 11/11/24 16:00
*Pulse Oximetry
SaO2: 96
Oxygen Mode of Delivery: Room air
Patient hypoxic: no
*Critical Care Note
Total Time (30-74mins, 75-104mins- exclusive of procedures): 30 (Critical care statement: A total of 30 minutes of critical care time was provided for this patient. This includes management of unstable vital signs, evaluation of the patient at
bedside, reviewing the patient's pertinent medical records, discussion with consultants, review of old EKGs and review of)
ED Attending Note
-
Portions of this chart may have been created with voice recognition software.� Occasional wrong word or��sound alike� substitutions may have occurred due to the inherent limitations of voice recognition software.
Discharge Plan
Departure
Patient Disposition: Home (Routine Discharge)
Date of Disposition: 11/11/24
Time of Disposition: 16:38
Patient with high blood pressure during this ER visit?: Yes
Condition: Good
Discharge Problem:
Transient ischemic attack, Hypertensive emergency
Instructions: Transient Ischemic Attack (DC), BLOOD PRESSURE
Prescriptions:
New
clopidogrel [Plavix] 75 mg tablet
75 mg PO DAILY Qty: 21 0RF
No Action
metformin 500 mg Tablet
500 mg PO MEALS
potassium 99 mg Tablet
99 mg PO DAILY
docusate sodium 100 mg Capsule
100 mg PO HS
triamterene-hydrochlorothiazid 37.5-25 mg Tablet
0.5 tab PO DAILY
aspirin 81 mg Tablet
81 mg PO DAILY
Artificial Tears (PF) Dropperette
1 drp BOTH EYES QIDPRN PRN (Reason: DRY EYE)
cholecalciferol (vitamin D3) [Vitamin D3] 25 mcg (1,000 unit) Tablet
25 mcg PO DAILY
ferrous sulfate 27 mg iron Tablet
54 mg PO Q48H
magnesium oxide 400 mg magnesium Tablet
400 mg PO QPM
clopidogrel 75 mg Tablet
75 mg PO DAILY Qty: 30 0RF
rosuvastatin 20 mg Tablet
20 mg PO QPM Qty: 30 0RF
folic acid 1 mg tablet
1 mg PO DAILY Qty: 30 0RF
mecobalamin (vitamin B12) 1,000 mcg tablet,chewable
1,000 mcg PO DAILY Qty: 30 0RF
Referrals:
UNKNOWN - PT DOES,NOT KNOW [Family Provider]
Interventions
Interventions:
*Risk Screen - Suicide Last Done: 11/11/24 14:39
*Neglect/Abuse Screening Last Done: 11/11/24 14:44
*ED COVID-19 Vaccine History Last Done: 11/11/24 14:39
*ED Influenza Vaccine History Last Done: 11/11/24 14:39
*Nursing Disposition Last Done: 11/11/24 17:03
ED- Pulmonary Assessment Last Done: 11/11/24 14:40
ED- Neurological Assessment Last Done: 11/11/24 14:40
ED- Cardiac Assessment Last Done: 11/11/24 14:40
ED Swallowing Screen Last Done: 11/11/24 14:40
Discharge Date and Time
Discharge Date/Time: 11/11/24 17:03
Print Language: FRISIAN
[2024-11-11 14:51] LABS: Hematocrit 45.2 % (37.0-47.0); Hemoglobin 14.7 g/dL (12.0-16.0); Mean Corp Hgb Conc. 32.5 g/dL (33.0-37.0); Mean Corpuscular Volume 87.3 fL (81.0-99.0); Nucleated Red Blood Cells % 0 %; Platelet Count 238 10^3/uL (130-400); Red Cell Dist. Width 13.5 % (11.5-14.5)
[2024-11-11 14:53] LABS: ALT (SGPT) 19 U/L (0-35); AST (SGOT) 17 U/L (14-36); Albumin 4.2 g/dl (3.5-5.0); Alkaline Phosphatase 61 U/L (38-126); Blood Urea Nitrogen 10 mg/dl (7-17); Calcium 9.5 mg/dl (8.4-10.2); Carbon Dioxide 30 mmol/L (22-30); Chloride 107 mmol/L (98-107); Glucose 76 mg/dl (70-99); Potassium 3.7 mmol/L (3.5-5.1); Sodium 143 mmol/L (135-145); Total Protein 6.9 g/dl (6.3-8.2); eGFR > 60.00
[2024-11-11 15:28] LABS: Ferritin 43.2 ng/ml (11.1-264.0)
[2024-11-11 15:59] LABS: Folate > 20.0 ng/ml (2.76-20); Vitamin B12 874 pg/ml (239-931)
== END 2024-11-11 17:03 | disposition home or self-care (01) ==
LOC: EMR 13:42
PROVIDERS: Psychiatry & Neurology Neurology; EMERGENCY PHYSICIAN Emergency Medicine
DX: G45.9 Transient cerebral ischemic attack, unspecified (principal); I16.1 Hypertensive emergency; D68.51 Activated protein C resistance; E11.9 Type 2 diabetes mellitus without complications; E78.5 Hyperlipidemia, unspecified; J45.909 Unspecified asthma, uncomplicated; R29.701 NIHSS score 1; Z79.82 Long term (current) use of aspirin; F17.200 Nicotine dependence, unspecified, uncomplicated; Z98.84 Bariatric surgery status
CPT/HCPCS: 99291; 70450; 80053; 82607; 82728; 82746; 85025; 93005